=== PATIENT | female | born 1990 | race Caucasian/White ===

== ENCOUNTER 2016-04-29 20:00 | Inpatient (IN) | payer MEDICAID, OTHER ==
[2016-04-29 20:00] VITALS: BMI 42.5
[2016-04-29] MEDS ORDERED: Iohexol 240 (50 ml) ONE (20:48)
[2016-04-29 20:51] LABS: BASO # 0.1 K/uL (0.0-0.2); BASO % 0.8 % (0.0-2.0); EOS # 0.2 K/uL (0.0-0.7); EOS % 2.8 % (0.0-4.0); HEMATOCRIT 42.3 % (34.0-47.0); LYMPH # 2.5 K/uL (1.0-4.3); LYMPH % 31.6 % (20.0-40.0); MEAN CELL VOLUME 87.3 fL (81.0-99.0); MEAN CORPUSCULAR HEMOGLOBIN 28.8 pg (27.0-31.0); MEAN PLATELET VOLUME 9.4 fL (7.2-11.7); MONO # 0.5 K/uL (0.0-0.8); MONO % 5.8 % (0.0-10.0); NRBC % 0.1 % (0.0-2.0); RED CELL DISTRIBUTION WIDTH 13.9 % (11.5-14.5)
[2016-04-29 20:56] LABS: CHLORIDE 99 mmol/L (98-107); POTASSIUM 3.9 mmol/L (3.6-5.2); SODIUM 145 mmol/L (132-148)
[2016-04-29 20:58] LABS: GFR AFRICAN-AMERICAN > 60
[2016-04-29 20:59] LABS: ALB/GLOB RATIO 1.1 (1.0-2.1); ALKALINE PHOSPHATASE 48 U/L (38-126); ALT/SGPT 13 U/L (9-52); AST/SGOT 26 U/L (14-36); BILIRUBIN,TOTAL 0.2 mg/dL (0.2-1.3); BLOOD UREA NITROGEN 11 mg/dL (7-17); CALCIUM 9.7 mg/dl (8.6-10.4); CARBON DIOXIDE 25 mmol/L (22-30); GLUCOSE,RANDOM 110 mg/dL (65-105); TOTAL PROTEIN 9.2 g/dL (6.3-8.3)
[2016-04-29 21:01] LABS: RBC URINE 7 /hpf (0-3); URINE BACTERIA OCC (<OCC); URINE BILIRUBIN NEGATIVE (NEGATIVE); URINE COLOR Yellow (YELLOW); URINE GLUCOSE (UA) NORMAL (Normal); URINE KETONE NEGATIVE (NEGATIVE); URINE LEUKOCYTE ESTERASE NEG Leu/uL (Negative); URINE PROTEIN NEGATIVE (NEGATIVE); URINE UROBILINOGEN NORMAL mg/dL (0.2-1.0); WBC URINE 2 /hpf (0-5)
[2016-04-29 21:03] LABS: URINE BLOOD 1+ (NEGATIVE)
[2016-04-29] MEDS ORDERED: Morphine 4 MG/ML VIAL ONE (21:14)
[2016-04-29] MEDS ORDERED: Iodixanol 320 MG/ML 100 ML BOTTLE IV ONE (21:19)
--- NOTE | 2016-04-29 21:36 | C.PDOC ---
History Of Present Illness 25 yr old female presents to the ER with complaints of diffuse abdominal pain for the past 2 days. Patient reports bulging umbilical hernia for months but increasing pain to the area today radiating. Patient reports last bowel movement this morning. Patient denies nausea, vomiting, diarrhea, constipation, dysuria, incontinence, hematuria, back pain, dizziness or fever Time Seen by Provider: 04/29/16 20:24 Chief Complaint (Nursing): Abdominal Pain History Per: Patient History/Exam Limitations: no limitations Onset/Duration Of Symptoms: Days (diffuse abd pain for 2 days), Persistent ( bulging umbilical hernia for months), Worse Since (today) Current Symptoms Are (Timing): Still Present Severity: Severe Pain Scale Rating Of: 10 Location Of Pain/Discomfort: Diffuse, Periumbilical (with hernia) Past Medical History Reviewed: Historical Data, Nursing Documentation, Vital Signs Vital Signs: Last Vital Signs Temp 97.9 F 04/29/16 20:05 Pulse 111 H 04/29/16 22:51 Resp 20 04/29/16 22:51 BP 137/99 H 04/29/16 22:51 Pulse Ox 99 04/29/16 22:51 - Medical History PMH: Hiatal Hernia Surgical History: Hernia Repair (LLQ 8 yrs ago) - [facility] Procedures DELIVERY OF PRODUCTS OF CONCEPTION, EXTERNAL APPROACH (08/28/15) MONITORING NOS (10/04/13) INJECT RH IMMUNE GLOBUL (10/04/13) MANUAL ASSIST DELIV NEC (10/04/13) Family History: States: No Known Family Hx - Social History Hx Tobacco Use: No Hx Alcohol Use: No Hx Substance Use: No - Immunization History Hx Tetanus Toxoid Vaccination: No Hx Influenza Vaccination: No Hx Pneumococcal Vaccination: No Review Of Systems Gastrointestinal: Positive for: Abdominal Pain (diffuse). Negative for: Nausea , Vomiting, Diarrhea, Constipation Genitourinary: Negative for: Dysuria, Incontinence, Hematuria Musculoskeletal: Negative for: Back Pain Neurological: Negative for: Weakness, Numbness Physical Exam - Physical Exam Appears: Non-toxic, No Acute Distress Skin: Warm, Dry, No Rash Head: Atraumatic, Normacephalic Eye(s): bilateral: Normal Inspection, EOMI Oral Mucosa: Moist Throat: Normal Chest: Symmetrical, No Tenderness Cardiovascular: Rhythm Regular, No Murmur Respiratory: Normal Breath Sounds, No Rhonchi, No Stridor, No Wheezing Gastrointestinal/Abdominal: No Soft, Tenderness (Mild diffuse tenderness but moderately at periumbilical area), No Mass, No Distention, No Guarding, No Rebound, Hernia (Reducible umbilical hernia but moderately tender), Other ( Obese abdomen ) Back: Normal Inspection, No CVA Tenderness Extremity: Normal ROM, No Tenderness, No Deformity, No Swelling Neurological/Psych: Oriented x3, Normal Speech, Normal Motor ED Course And Treatment - Laboratory Results Result Diagrams: 04/29/16 20:44 04/29/16 20:44 O2 Sat by Pulse Oximetry: 98 Pulse Ox Interpretation: Normal Progress Note: Pt received toradol IM, but continues to have moderate pain. Pt received morphine IV---. Pt is pendind CT, NPO--. Pt with imptoved pain, pending CT results - Physician Consult Information Time Consulting Physician Contacted: 23:05 Physician Contacted: Anat Solano Outcome Of Conversation: Recommend to have surg Res evaluate pt for admission Medical Decision Making Medical Decision Making: PLAN: * CT - Abd & Pelvis * CBC * HCG Urine * Urinalysis * toradol IV * Morphine IVP Disposition - Disposition Disposition: HOSPITALIZED Disposition Time: 00:04 Condition: STABLE - Clinical Impression Clinical Impression: Incarcerated umbilical hernia - PA / PIPE LAYER HELPER / Resident Statement MD/DO has reviewed & agrees with the documentation as recorded. - Scribe Statement The provider has reviewed the documentation as recorded by the Scribe Karina Crouch All medical record entries made by the Scribe were at my direction and personally dictated by me. I have reviewed the chart and agree that the record accurately reflects my personal performance of the history, physical exam, medical decision making, and the department course for this patient. I have also personally directed, reviewed, and agree with the discharge instructions and disposition.
[2016-04-29] MEDS ORDERED: Sodium Chloride 0.9% 1,000 ML IV ONE (22:46)
[2016-04-29] MEDS ORDERED: Morphine 4 MG/ML VIAL IVP PRN (23:24)
[2016-04-30] MEDS: Sodium Chloride 0.9% 1,000 ML IV SCH ×3 (00:05→07:43)
--- NOTE | 2016-04-30 00:10 | CP.PCM.HP ---
History of Present Illness - History of Present Illness History of Present Illness: Surgery: Dr. Solano CC: bulge at belly button and pain HPI: Patient is a 25 y/o female w/ significant pmhx of recent gestation with normal vaginal delivery 7 months ago presents complaining of bulge at belly button and abdominal pain for the past week. She states she noticed the pain and bulge after lifting something heavy. The pain was severe in nature and would fluctuate in intensity. She states the pain gets worse when she coughs, gags, or lifts anything heavy. She notices the bulge increase and decrease with these activities as well. She reports some referral of pain the the Right and left lower abdominal quadrants. She denies n/v/f/c. She attempted tylenol for pain but the pain never resolved. She denies diarrhea or constipation. She reports similar episode in the past about 8 years ago when she was diagnosed with a hernia on the LLQ of her abdomen. She states it was surgically repaired w /o mesh because she wants to have more children. PMH: hernia, , last menstrual cycle was in February 2016 PSH: LLQ ventral hernia repair w/o mesh Social: lives with , denies ETOH, tobacco or drug use. Present on Admission - Present on Admission Any Indicators Present on Admission: No Review of Systems - Review of Systems All systems: reviewed and no additional remarkable complaints except Review of Systems: unless stated in HPI - Constitutional Constitutional: absent: Anorexia, Chills, Fever - EENT Eyes: absent: Blurred Vision, Change in Vision Nose/Mouth/Throat: absent: Nasal Congestion, Sinus Pain - Cardiovascular Cardiovascular: absent: Chest Pain, Dyspnea - Respiratory Respiratory: absent: Cough, Wheezing - Gastrointestinal Gastrointestinal: Abdominal Pain. absent: Change in Bowel Habits, Constipation , Diarrhea, Nausea, Vomiting - Genitourinary Genitourinary: absent: Hematuria, Pyuria - Reproductive: Female Reproductive:Female: Menses Variable Additional comments: 7 months ago - Integumentary Integumentary: absent: Acne, New Lesions - Neurological Neurological: absent: Dizziness, Weakness - Endocrine Endocrine: absent: Polydipsia, Polyphagia - Hematologic/Lymphatic Hematologic: absent: Easy Bleeding, Easy Bruising Past Patient History - Past Social History Smoking Status: Never Smoked - PSYCHIATRIC Hx Substance Use: No Meds Allergies/Adverse Reactions: Allergies Allergy/AdvReac Type Severity Reaction Status Date / Time No Known Allergies Allergy Verified 08/13/14 16:32 Physical Exam - Constitutional Appears: Non-toxic, No Acute Distress Additional comments: Obese female - Head Exam Head Exam: ATRAUMATIC, NORMOCEPHALIC - Eye Exam Eye Exam: EOMI, Normal appearance - ENT Exam ENT Exam: Mucous Membranes Moist - Respiratory Exam Respiratory Exam: NORMAL BREATHING PATTERN. absent: Respiratory Distress - Cardiovascular Exam Cardiovascular Exam: REGULAR RHYTHM. absent: Tachycardia - GI/Abdominal Exam GI & Abdominal Exam: Hernia (anahy-umbilical, reducible but tender to palpation) , Soft, Tenderness (anahy-umbilical ). absent: Distended, Guarding, Rebound Additional comments: LLQ incision from prior hernia repair - Rectal Exam Rectal Exam: Deferred - Extremities Exam Extremities exam: Positive for: normal inspection. Negative for: calf tenderness - Neurological Exam Neurological exam: Alert, CN II-XII Intact, Oriented x3 - Psychiatric Exam Psychiatric exam: Normal Affect, Normal Mood - Skin Skin Exam: Dry, Intact, Normal Color, Warm Results - Vital Signs Recent Vital Signs: Last Vital Signs Temp 97.9 F 04/29/16 20:05 Pulse 111 H 04/29/16 22:51 Resp 20 04/29/16 22:51 BP 137/99 H 04/29/16 22:51 Pulse Ox 98 04/29/16 23:59 - Labs Result Diagrams: 04/29/16 20:44 04/29/16 20:44 Assessment & Plan - Assessment and Plan (Free Text) Assessment: 25 y/o female w/ anahy-umbilical hernia Plan: -pain control -nausea control -NPO at MN -OR in afternoon -IVFs -consent obtained -patient states she does not want mesh placed w/ hernia repair -Pepcid/SCDs -d/w Dr. Sudha Abdi PGY1
[2016-04-30 07:24] LABS: CHLORIDE 101 mmol/L (98-107); SODIUM 139 mmol/L (132-148)
[2016-04-30 07:25] LABS: POTASSIUM 3.6 mmol/L (3.6-5.2)
[2016-04-30 07:27] LABS: ALB/GLOB RATIO 1.3 (1.0-2.1); ALKALINE PHOSPHATASE 44 U/L (38-126); ALT/SGPT 11 U/L (9-52); AST/SGOT 19 U/L (14-36); BILIRUBIN,TOTAL 0.2 mg/dL (0.2-1.3); BLOOD UREA NITROGEN 11 mg/dL (7-17); CARBON DIOXIDE 23 mmol/L (22-30); GFR AFRICAN-AMERICAN > 60; GLUCOSE,RANDOM 99 mg/dL (65-105); TOTAL PROTEIN 7.1 g/dL (6.3-8.3)
[2016-04-30 07:28] LABS: BASO % 0.5 % (0.0-2.0); CALCIUM 8.4 mg/dl (8.6-10.4); EOS # 0.3 K/uL (0.0-0.7); EOS % 3.2 % (0.0-4.0); LYMPH # 3.1 K/uL (1.0-4.3); LYMPH % 36.6 % (20.0-40.0); MEAN CELL VOLUME 86.8 fL (81.0-99.0); MEAN CORPUSCULAR HEMOGLOBIN 28.8 pg (27.0-31.0); MEAN CORPUSCULAR HGB CONC 33.2 g/dL (33.0-37.0); MEAN PLATELET VOLUME 9.6 fL (7.2-11.7); MONO # 0.8 K/uL (0.0-0.8); MONO % 9.1 % (0.0-10.0); RED CELL DISTRIBUTION WIDTH 13.7 % (11.5-14.5); WHITE BLOOD COUNT 8.4 K/uL (4.8-10.8)
[2016-04-30 07:49] LABS: HEMATOCRIT 36.7 % (34.0-47.0)
--- NOTE | 2016-04-30 08:09 | CT ---
PROCEDURE: CT Abdomen and Pelvis with contrast HISTORY: Abdominal pain. Umbilical hernia COMPARISON: None. TECHNIQUE: Axial computed tomographic images were performed through the abdomen and pelvis with the use of intravenous contrast. Subsequently, sagittal and coronal reformatted images were obtained. 100 cc of Visipaque 320 intravenous contrast was administered. Radiation dose: Total exam DLP = 1157 mGy-cm. FINDINGS: LOWER THORAX: Unremarkable. LIVER: Unremarkable. No gross lesion or ductal dilatation. GALLBLADDER AND BILE DUCTS: Unremarkable. PANCREAS: Unremarkable. No gross lesion or ductal dilatation. SPLEEN: Unremarkable. ADRENALS: Unremarkable. No mass. KIDNEYS AND URETERS: Unremarkable. No hydronephrosis. No solid mass. VASCULATURE: Unremarkable. No aortic aneurysm. BOWEL: Periumbilical hernia which measures 5.7 x 4.6 x 4.8 centimeters and contains an obstructed small bowel loop. Dilated loops of small bowel seen within the left upper abdomen. Stranding near the base of the hernia within the omentum. This may represent simple inflammation; however, the possibility of ischemia is not entirely excluded. Findings are concerning for possible incarcerated periumbilical hernia. APPENDIX: No findings to suggest acute appendicitis. PERITONEUM: Unremarkable. No free fluid. No free air. LYMPH NODES: Unremarkable. No enlarged lymph nodes. BLADDER: Urinary bladder is decompressed. Question punctate foci of air seen within anterior right lateral aspect of the urinary bladder. REPRODUCTIVE: Prior hysterectomy. BONES: No acute fracture. OTHER FINDINGS: None. IMPRESSION: Periumbilical hernia which measures 5.7 x 4.6 x 4.8 centimeters containing an obstructed small bowel loop. Dilated loops of small bowel seen within the left upper abdomen. Stranding near the base of the hernia within the omentum. This may represent simple inflammation; however, the possibility of ischemia is not excluded. Findings are concerning for possible incarcerated periumbilical hernia. Urinary bladder is decompressed. Question punctate foci of air seen within anterior right lateral aspect of the urinary bladder. These findings were preliminarily reported at 10:52 p.m. on 04/29/[address] River Khan from [facility].
[2016-04-30] MEDS ORDERED: Propofol 10 mg/ml Inj (20 ML) ONE (10:17)
[2016-04-30] MEDS ORDERED: Rocuronium 10 mg/ml (5 ml) ONE (10:18)
[2016-04-30] MEDS ORDERED: ceFAZolin IV 1 gm in Dextrose 50 ML IVPB ONE (10:22)
--- NOTE | 2016-04-30 11:28 | PCM.SURG1 ---
Surgeon's Initial Post Op Note - Surgeon's Notes Surgeon: Dr. Solano Heavy Duty Diesel Mechanic: Dr. Krishna PGY2 Type of Anesthesia: General Endo Anesthesia Administered By: Micky Pre-Operative Diagnosis: Incarcerated umbilical hernia Operative Findings: same Post-Operative Diagnosis: same Operation Performed: Open Umbilical Hernia repair (primary repair) Specimen/Specimens Removed: hernia sac Estimated Blood Loss: EBL {In ML}: 5 Blood Products Given: N/A Drains Used: No Drains Post-Op Condition: Good Date of Surgery/Procedure: 04/30/16 Time of Surgery/Procedure: 11:28
[2016-04-30] MEDS ORDERED: Neostigmine Methylsulfate 3mg/3ml Syringe IV ONE (12:13)
[2016-04-30] MEDS: Oxycodone/Acetaminophen 5/325 mg Tab PO PRN ×3 (13:46→22:41)
--- NOTE | 2016-04-30 14:37 | OP ---
PROCEDURE DATE: 04/30/2016 SURGEON: Dr. Solano. TECH ED TEACHER: Dr. Krishna. ANESTHESIA: General, MEDICAL CODER Dr. Ben Allen. PREOPERATIVE DIAGNOSIS: Incarcerated umbilical hernia. POSTOPERATIVE DIAGNOSIS: Incarcerated umbilical hernia. PROCEDURE: Umbilical hernia repair. DESCRIPTION OF OPERATION: With the patient in the supine position under adequate general anesthesia, the abdomen was prepped and draped in the usual sterile manner. The patient was noted to have a bul ge at the lower edge of the umbilicus, which was reducible on this exam and a semicircular transverse incision was made at the lower edge of the umbilicus, extended to the right and the left. The umbil ical skin was elevated off the underlying hernial sac and the sac was also completely from the surrounding subcutaneous tissue. The umbilical stalk was divided close to the level of the fasci a and the sac was opened. There were no incarcerated contents at the time of surgery and no adhesion s to the surrounding peritoneal surface. The sac was then amputated close to the level of the fascia leaving a fascial defect of approximately 1.5 cm, which was felt to close with no tension. The midl ine was then closed longitudinally with 3 [id number] sutures of 0 Prolene. The base of the umbi licus was tacked down to the area of the closure with a 4-0 Monocryl suture and the skin was closed w ith running subcuticular suture of 4-0 Monocryl and Dermabond. Dry sterile dressing was applied with umbilical packing. The patient tolerated the procedure well and transferred to recovery room in sta ble condition. Estimated blood loss for the procedure was 5 mL. Anat Solano MD cc: 58 TT: 04/30/2016 14:36:54 rosa maria
[2016-05-01 01:16] VITALS: RESP 20
[2016-05-01] MEDS: Oxycodone/Acetaminophen 5/325 mg Tab PO PRN (06:05)
--- NOTE | 2016-05-01 07:47 | CP.PCM.DIS ---
Provider - Provider Date of Admission: 04/29/16 23:16 Attending physician: Anat Solano MD Time Spent in preparation of Discharge (in minutes): 10 Hospital Course - Lab Results Lab Results: Most Recent Lab Values WBC 8.4 K/uL (4.8-10.8) 04/30/16 07:11 RBC 4.11 Mil/uL (3.80-5.20) 04/30/16 07:11 Hgb 12.1 g/dL (11.0-16.0) 04/30/16 07:11 Hct 36.7 % (34.0-47.0) 04/30/16 07:11 MCV 86.8 fL (81.0-99.0) 04/30/16 07:11 MCH 28.8 pg (27.0-31.0) 04/30/16 07:11 MCHC 33.2 g/dL (33.0-37.0) 04/30/16 07:11 RDW 13.7 % (11.5-14.5) 04/30/16 07:11 Plt Count 205 K/uL (130-400) 04/30/16 07:11 MPV 9.6 fL (7.2-11.7) 04/30/16 07:11 Neut % (Auto) 50.6 % (50.0-75.0) 04/30/16 07:11 Lymph % (Auto) 36.6 % (20.0-40.0) 04/30/16 07:11 Canadian % (Auto) 9.1 % (0.0-10.0) 04/30/16 07:11 Eos % (Auto) 3.2 % (0.0-4.0) 04/30/16 07:11 Baso % (Auto) 0.5 % (0.0-2.0) 04/30/16 07:11 Neut # 4.3 K/uL (1.8-7.0) 04/30/16 07:11 Lymph # 3.1 K/uL (1.0-4.3) 04/30/16 07:11 Canadian # 0.8 K/uL (0.0-0.8) 04/30/16 07:11 Eos # 0.3 K/uL (0.0-0.7) 04/30/16 07:11 Baso # 0.0 K/uL (0.0-0.2) 04/30/16 07:11 PT 11.4 SECONDS (9.7-12.2) 04/30/16 07:11 INR 1.0 04/30/16 07:11 APTT 31 SECONDS (21-34) 04/30/16 07:11 Sodium 139 mmol/L (132-148) 04/30/16 07:11 Potassium 3.6 mmol/L (3.6-5.2) 04/30/16 07:11 Chloride 101 mmol/L (98-107) 04/30/16 07:11 Carbon Dioxide 23 mmol/L (22-30) 04/30/16 07:11 Anion Gap 18 (10-20) 04/30/16 07:11 BUN 11 mg/dL (7-17) 04/30/16 07:11 Creatinine 0.6 MG/DL (0.7-1.2) L 04/30/16 07:11 Est GFR ( Amer) > 60 04/30/16 07:11 Est GFR (Non-Af Amer) > 60 04/30/16 07:11 Random Glucose 99 mg/dL (65-105) 04/30/16 07:11 Calcium 8.4 mg/dl (8.6-10.4) L 04/30/16 07:11 Total Bilirubin 0.2 mg/dL (0.2-1.3) 04/30/16 07:11 AST 19 U/L (14-36) 04/30/16 07:11 ALT 11 U/L (9-52) 04/30/16 07:11 Alkaline Phosphatase 44 U/L (38-126) 04/30/16 07:11 Total Protein 7.1 g/dL (6.3-8.3) 04/30/16 07:11 Albumin 3.9 g/dL (3.5-5.0) 04/30/16 07:11 Globulin 3.1 gm/dL (2.2-3.9) 04/30/16 07:11 Albumin/Globulin Ratio 1.3 (1.0-2.1) 04/30/16 07:11 Lipase 217 U/L (23-300) 04/29/16 20:44 Urine Color Yellow (YELLOW) 04/29/16 20:44 Urine Clarity Hazy (Clear) 04/29/16 20:44 Urine pH 5.0 (5.0-8.0) 04/29/16 20:44 Ur Specific Wayne 1.016 (1.003-1.030) 04/29/16 20:44 Urine Protein Negative mg/dL (NEGATIVE) 04/29/16 20:44 Urine Glucose (UA) Normal mg/dL (Normal) 04/29/16 20:44 Urine Ketones Negative mg/dL (NEGATIVE) 04/29/16 20:44 Urine Blood 1+ (NEGATIVE) H 04/29/16 20:44 Urine Nitrate Negative (NEGATIVE) 04/29/16 20:44 Urine Bilirubin Negative (NEGATIVE) 04/29/16 20:44 Urine Urobilinogen Normal mg/dL (0.2-1.0) 04/29/16 20:44 Ur Leukocyte Esterase Neg Alverto/uL (Negative) 04/29/16 20:44 Urine WBC (Auto) 2 /hpf (0-5) 04/29/16 20:44 Urine RBC (Auto) 7 /hpf (0-3) H 04/29/16 20:44 Ur Squamous Epith Cells 6 /hpf (0-5) H 04/29/16 20:44 Urine Bacteria Occ (<OCC) H 04/29/16 20:44 Urine HCG, Qual Negative (NEGATIVE) 04/29/16 20:44 - Hospital Course Hospital Course: Pt is 25F presented on 04/30/16 with abdominal pain. Found to have incarcerated umbilical hernia. Taken to OR for primary umbilical repair on the same day. Pt was kept overnight for pain control and diet tolerance. Doing well, passing flatus, ambulating. D/C w/ rx for pain and f/u in 1 week Discharge Exam - Head Exam Head Exam: ATRAUMATIC, NORMOCEPHALIC - Respiratory Exam Respiratory Exam: absent: Accessory Muscle Use, Respiratory Distress - Cardiovascular Exam Cardiovascular Exam: REGULAR RHYTHM - GI/Abdominal Exam GI & Abdominal Exam: Soft, Tenderness (anahy-incisional). absent: Distended, Firm, Guarding - Neurological Exam Neurological exam: Alert, Oriented x3 - Psychiatric Exam Psychiatric exam: Normal Affect, Normal Mood - Skin Skin Exam: Normal Color, Warm Discharge Plan - Discharge Medications Prescriptions: oxyCODONE/Acetaminophen [Percocet 5/325 mg Tab] 2 tab PO Q4H PRN #30 tab PRN Reason: Pain, Moderate (4-7) - Follow Up Plan Condition: GOOD Disposition: HOME/ ROUTINE Additional Instructions: F/U with Dr. Solano in 1 week in office. You may remove dressing tomorow and shower. Take percocet as needed for pain. Avoid any heavy lifting (>10lbs) for at least 6 weeks. Referrals: Anat Solano MD [Staff Provider] -
[2016-05-01] MEDS ORDERED: Pneumococcal 23-Valent Vaccine IM ONE ×2 (08:38→10:01)
[2016-05-01] MEDS ORDERED: Influenza Virus Vaccine 45 mcg/0.5 ml Syr (36 months - 7 yrs) IM ONE ×2 (09:55→10:01)
[2016-05-01] MEDS ORDERED: Influenza Virus Vaccine 45 mcg/0.5 ml Syr IM ONE (10:15)
[2016-05-01 13:13] VITALS: BP 117/80; PULSE 100; TEMP 97.9; O2SAT 96
== END 2016-05-01 12:20 | disposition home or self-care (01) | DRG 355 ==
LOC: C.ER 20:00 → C.3T 23:16
PROVIDERS: ADMIT Specialist; ATTEND Specialist
PROC: 0WQF0ZZ Repair Abdominal Wall, Open Approach (ICD-10-PCS; principal; 2016-04-30 15:00)
DX: K42.0 Umbilical hernia with obstruction, without gangrene (principal); G89.18 Other acute postprocedural pain